=== PATIENT | male | born 1990 | race Caucasian/White ===

== ENCOUNTER 2020-02-19 00:35 | Emergency (ER) | payer OTHER ==
[~2020-02-19] VITALS: Ht 180.3 cm; Wt 81.2 kg
[2020-02-19] MEDS ORDERED: DEXAMETHASONE SOD PHOSPHATE 10 MG/ML VIAL ONE (01:18)
[2020-02-19] MEDS ORDERED: ALBUTEROL FS 2.5 MG/0.5 ML VIAL.NEB ONE (01:22)
--- NOTE | 2020-02-19 01:25 | NUR ---
RT IS AT THE BEDSIDE FOR BREATHING TX.
[2020-02-19] MEDS ORDERED: DEXAMETHASONE SOD PHOSPHATE 4 MG/ML VIAL IM ONE (01:30)
[2020-02-19] MEDS ORDERED: ALBUTEROL FS 2.5 MG/0.5 ML VIAL.NEB NEB ONE (01:30)
--- NOTE | 2020-02-19 01:34 | NUR ---
AWAITING BREATHING TREATMENT TO FINISH. VSS.
--- NOTE | 2020-02-19 01:42 | NUR ---
Patient discharged to home in stable condition. Written and verbal after care instructions given. Patient verbalizes understanding of instruction and RX. Pt ambualted with stedy gait. RR even and unlabored. vss.
[2020-02-19 01:51] VITALS: BP 132/89
== END 2020-02-19 01:42 | disposition home or self-care (01) ==
LOC: ER 00:38
DX: J98.01 Acute bronchospasm (principal); Z88.0 Allergy status to penicillin
CPT/HCPCS: 94640; 96372; 99285; J1100

== ENCOUNTER 2022-01-19 15:05 | Emergency (ER) | payer OTHER ==
[~2022-01-19] VITALS: Ht 177.8 cm; Wt 76.2 kg
[2022-01-19 15:05] VITALS: BP 135/95
--- NOTE | 2022-01-19 15:19 | NUR ---
AT BEDSIDE FOR EVAL.
[2022-01-19] MEDS ORDERED: ALBU8.5H8 INH (16:14)
[2022-01-19] MEDS ORDERED: PRED50TA PO (16:14)
== END 2022-01-19 16:17 | disposition home or self-care (01) ==
LOC: ER 15:07
DX: U07.1 COVID-19 (principal); J45.909 Unspecified asthma, uncomplicated; Z88.0 Allergy status to penicillin; Z60.2 Problems related to living alone; Z79.51 Long term (current) use of inhaled steroids

== ENCOUNTER 2022-10-11 13:08 | Emergency (ER) | payer BC, OTHER ==
[~2022-10-11] VITALS: Ht 177.8 cm; Wt 74.8 kg
[~2022-10-11 13:08] MED LIST: ALBU8.5H8 INH; PRED50TA PO
--- NOTE | 2022-10-11 13:20 | NUR ---
RECEVED PT 32 YRS MALE WALKING IN FROM HOME C/O PALPATION SINCE LAST NIGHT NO CP NO SOB
--- NOTE | 2022-10-11 14:05 | NUR ---
BLOOD DROW BY LAB TACH
[2022-10-11 14:07] LABS: BASOPHILS # (AUTO) 0.1 K/uL (0.0-0.2); BASOPHILS % (AUTO) 1.1 % (0.0-2.0); EOSINOPHILS % (AUTO) 1.5 % (0.0-6.0); HEMATOCRIT 45 % (39-51); HEMOGLOBIN 15.3 g/dL (13.5-17.5); LYMPHOCYTES # (AUTO) 1.7 K/uL (0.8-4.8); LYMPHOCYTES % (AUTO) 30.5 % (20.0-44.0); MEAN CORPUSCULAR HGB CONC 34 g/dl (31.0-36.0); MEAN CORPUSCULAR VOLUME 87 fL (80-96); MONOCYTES # (AUTO) 0.4 K/uL (0.1-1.30); MONOCYTES % (AUTO) 6.2 % (2.0-12.0); NEUTROPHILS # (AUTO) 3.5 K/uL (1.8-8.9); NEUTROPHILS % (AUTO) 60.7 % (43.0-81.0); PLATELET COUNT (AUTO) 322 K/uL (150-450); RED BLOOD CELL COUNT(AUTO) 5.11 MIL/uL (4.5-6.0); WHITE BLOOD COUNT (AUTO) 5.7 K/uL (4.3-11.0)
[2022-10-11 14:21] LABS: CALCIUM, SERUM 9.3 mg/dL (8.5-10.1); CARBON DIOXIDE 28 mmol/L (21-32); CHLORIDE 103 mmol/L (98-107); GLUCOSE 104 mg/dL (74-106); POTASSIUM 3.7 mmol/L (3.5-5.1); SODIUM SERUM 137 mmol/L (136-145); UREA NITROGEN, BLOOD 8 mg/dL (7-18)
--- NOTE | 2022-10-11 15:35 | NUR ---
DINESES CHEST PAIN OR PALPATION
--- NOTE | 2022-10-11 15:50 | NUR ---
Patient discharged to home in stable condition. Written and verbal after care instructions given. Patient verbalizes understanding of instruction.
[2022-10-11 15:55] VITALS: BP 131/87
== END 2022-10-11 16:10 | disposition home or self-care (01) ==
LOC: ER 13:15
DX: R07.9 Chest pain, unspecified (principal); J45.909 Unspecified asthma, uncomplicated; Z88.0 Allergy status to penicillin; Z60.2 Problems related to living alone; Z79.52 Long term (current) use of systemic steroids; Z79.51 Long term (current) use of inhaled steroids
CPT/HCPCS: 36415; 71045-TC; 80048-TC; 84484-TC; 85025-TC

== ENCOUNTER 2024-05-26 18:29 | Emergency (ER) | payer BC | END 2024-05-26 20:39 | disposition left against medical advice (07) | LOC: ER 18:32 | DX: Z53.21 Procedure and treatment not carried out due to patient leaving prior to being seen by health care provider (principal) ==